=== PATIENT | female | born 1940 | race Caucasian/White ===

== ENCOUNTER → 2020-07-26 | Outpatient (CLI) | payer MEDICARE, BC ==
[~2020-07-26] MED LIST: AMLODIPINE BES2.5 MG PO; ASPIRIN81 M1 PO; ATENOLOL25 MG PO; CALCITONIN-SAL3.7 ML; FOLIC ACID; FOLIC ACID PO; GLUCOSAMINE PO; VESICARE5 MG PO; VIT D PO; VITAMIN D3 1,01 EACH PO; [UNRECOGNIZED DRUG - OTHER]
== END ==
LOC: MRI 14:06
PROVIDERS: ATTEND Internal Medicine
DX: R42 Dizziness and giddiness (principal); M21.372 Foot drop, left foot
CPT/HCPCS: 70551

== ENCOUNTER → 2020-09-02 | Outpatient (CLI) | payer MEDICARE, BC | LOC: MRI 10:16 | PROVIDERS: ATTEND Psychiatry & Neurology Neurology | DX: M54.16 Radiculopathy, lumbar region (principal) | CPT/HCPCS: 72148 ==

== ENCOUNTER → 2020-10-04 | Outpatient (CLI) | payer MEDICARE, BC ==
[~2020-10-04] MED LIST changes: +IOPAMIDOL 370 MG/ML 200 ML INFUS..BTL INJ ONE; +SODIUM CHLORIDE 0.9% 100 ML ONE; +SODIUM CHLORIDE 0.9% 500ML 500 ML ONE
[2020-10-04 14:15] LABS: CREATININE, SERUM 1.2 mg/dL (0.57-1.11)
== END ==
LOC: CT 13:27
PROVIDERS: ATTEND Internal Medicine
DX: R42 Dizziness and giddiness (principal); R55 Syncope and collapse
CPT/HCPCS: 36415; 70496; 70498; 82565; 84520; J7040; J7050; Q9967

== ENCOUNTER → 2021-11-07 | Outpatient (CLI) | payer MEDICARE ==
[~2021-11-07] MED LIST changes: -IOPAMIDOL 370 MG/ML 200 ML INFUS..BTL INJ ONE; -SODIUM CHLORIDE 0.9% 100 ML ONE; -SODIUM CHLORIDE 0.9% 500ML 500 ML ONE
== END ==
LOC: MRI 07:11
PROVIDERS: ATTEND Specialist
DX: R42 Dizziness and giddiness (principal); M21.372 Foot drop, left foot; R26.81 Unsteadiness on feet
CPT/HCPCS: 72040; 72070; 72100; 72141; 72146; 72148

== ENCOUNTER 2021-12-22 14:00 | Outpatient (RCR) | payer MEDICARE | END 2021-12-31 | LOC: PT 14:00 | PROVIDERS: ATTEND Specialist | DX: S32.591D Other specified fracture of right pubis, subsequent encounter for fracture with routine healing (principal) ==

== ENCOUNTER 2022-01-29 13:53 | Outpatient (RCR) | payer MEDICARE | END 2022-01-31 | LOC: PT 13:53 | PROVIDERS: ATTEND Specialist | DX: S32.591D Other specified fracture of right pubis, subsequent encounter for fracture with routine healing (principal) ==

== ENCOUNTER 2022-02-12 13:59 | Outpatient (RCR) | payer MEDICARE | END 2022-03-02 | LOC: PT 13:59 | PROVIDERS: ATTEND Specialist | DX: S32.591D Other specified fracture of right pubis, subsequent encounter for fracture with routine healing (principal) ==

== ENCOUNTER 2022-05-08 20:08 | Emergency (ER) | payer MEDICARE ==
[2022-05-08] MEDS ORDERED: LIDOCAINE HCL 1% LOCAL INJ 20 ML VIAL INJ ONE (20:45)
[2022-05-08] MEDS ORDERED: LIDOCAINE 1% 10 ML MULTIDOSE VIAL IJ ONE (21:08)
[2022-05-08 22:30] VITALS: BP 155/76
[2022-05-08] MEDS ORDERED: CEPHALEXIN500 MG PO (22:32)
== END 2022-05-08 22:30 | disposition home or self-care (01) ==
LOC: FSED 20:13
DX: S51.012A Laceration without foreign body of left elbow, initial encounter (principal); S51.811A Laceration without foreign body of right forearm, initial encounter; S60.212A Contusion of left wrist, initial encounter; I10 Essential (primary) hypertension; E78.5 Hyperlipidemia, unspecified; W18.39XA Other fall on same level, initial encounter; Z88.6 Allergy status to analgesic agent; Z88.0 Allergy status to penicillin; Z79.899 Other long term (current) drug therapy; Z87.891 Personal history of nicotine dependence
CPT/HCPCS: 99284

== ENCOUNTER → 2022-07-17 | Outpatient (CLI) | payer MEDICARE ==
[~2022-07-17] MED LIST changes: +CEPHALEXIN500 MG PO
== END ==
LOC: RAD 11:54
PROVIDERS: ATTEND Internal Medicine
DX: M25.561 Pain in right knee (principal)

== ENCOUNTER 2022-09-20 11:20 | Observation (INO) | payer MEDICARE ==
[~2022-09-20] VITALS: Ht 152.4 cm; Wt 57.6 kg
[2022-09-20 11:49] LABS: BASOPHILS % 0.5 % (0.0-1.0); EOSINOPHILS # (AUTO) 0.1 (0.0-0.4); EOSINOPHILS % 1.1 % (0.0-6.0); HEMATOCRIT 32.7 % (34.2-44.1); HEMOGLOBIN 9.8 g/dL (12.0-16.0); LYMPHOCYTES # (AUTO) 1.4 (1.0-3.2); LYMPHOCYTES % 15.3 % (18.0-39.1); MEAN CORPUSCULAR HEMOGLOBIN 20.2 pg (28-32); MEAN CORPUSCULAR VOLUME 67.4 fL (81-99); MONOCYTES # (AUTO) 0.5 (0.2-0.8); MONOCYTES % 5.7 % (4.4-11.3); NEUTROPHILS # (AUTO) 6.8 (2.1-6.9); NEUTROPHILS % 77.1 % (38.7-80.0); PLATELET COUNT 268 x10e3/uL (140-360); RED BLOOD COUNT 4.85 x10e6/uL (3.6-5.1); RED CELL DISTRIBUTION WIDTH 14.7 % (11.7-14.4)
[2022-09-20 12:01] LABS: INR 0.94; PARTIAL THROMBOPLASTIN TIME 29.2 seconds (23.8-35.5); PROTHROMBIN TIME 13.1 seconds (11.9-14.5)
[2022-09-20 12:09] LABS: ALANINE AMINOTRANSFERASE 7 IU/L (0-55); ALBUMIN 3.7 g/dL (3.5-5.0); ALBUMIN/GLOBULIN RATIO 1.2 (0.8-2.0); ALKALINE PHOSPHATASE 98 IU/L (40-150); ANION GAP 12.9 mmol/L (8-16); BLOOD UREA NITROGEN 18 mg/dL (7-26); BUN/CREATININE RATIO 21 (6-25); CARBON DIOXIDE 24 mmol/L (22-29); CHLORIDE 109 mmol/L (98-107); CREATINE KINASE 34 IU/L (29-168); CREATININE, SERUM 0.84 mg/dL (0.57-1.11); GLUCOSE 103 mg/dL (74-118); MAGNESIUM 1.9 MG/DL (1.3-2.1); POTASSIUM 3.9 mmol/L (3.5-5.1); SODIUM 142 mmol/L (136-145)
[2022-09-20] MEDS ORDERED: ASPIRIN 81 MG CHEW TAB PO STA (12:10)
[2022-09-20] MEDS ORDERED: ONDANSETRON HCL INJ 2MG/ML 2ML 2 MG/ML VIAL IV PRN (13:00)
[2022-09-20] MEDS ORDERED: NITROGLYCERIN 0.4 MG SUBL SL PRN (13:00)
[2022-09-20] MEDS: FAMOTIDINE 20 MG/2 ML VIAL IV SCH (13:07)
[2022-09-20 16:30] VITALS: BP 181/78
[2022-09-20 16:37] VITALS: BP 181/78
[2022-09-20] MEDS ORDERED: ALENDRONATE SOD70 MG (17:09)
[2022-09-20] MEDS ORDERED: ASPIRIN CHEW81 MG PO (17:09)
[2022-09-20] MEDS ORDERED: FOLIC ACID0.4 MG PO (17:09)
[2022-09-20] MEDS ORDERED: ZOLOFT50 MG PO (17:09)
[2022-09-20] MEDS ORDERED: ISORDIL40 MG PO (17:09)
[2022-09-20] MEDS ORDERED: PROTONIX20 MG PO (17:09)
[2022-09-20 19:31] LABS: CREATINE KINASE 135 IU/L (29-168)
[2022-09-20 20:00] VITALS: BP 171/61
[2022-09-20] MEDS ORDERED: ISOSORBIDE DINITRATE 20 MG TAB PO SCH (20:00)
[2022-09-20] MEDS ORDERED: ALENDRONATE SODIUM 70 MG TAB PO SCH (20:15)
[2022-09-20 20:20] VITALS: BP 171/61
[2022-09-20] MEDS: SERTRALINE HCL 50 MG TAB PO SCH (21:07)
[2022-09-20] MEDS: ISOSORBIDE DINITRATE 20 MG TAB PO SCH (21:07)
[2022-09-21] VITALS (7 sets, daily range): BP systolic 104–133; BP diastolic 40–58
[2022-09-21] MEDS: FAMOTIDINE 20 MG/2 ML VIAL IV SCH ×2 (00:27→14:57)
[2022-09-21 05:32] LABS: BASOPHILS % 0.4 % (0.0-1.0); EOSINOPHILS # (AUTO) 0.1 (0.0-0.4); EOSINOPHILS % 1.3 % (0.0-6.0); HEMATOCRIT 29.6 % (34.2-44.1); HEMOGLOBIN 8.8 g/dL (12.0-16.0); LYMPHOCYTES # (AUTO) 1.7 (1.0-3.2); LYMPHOCYTES % 22.4 % (18.0-39.1); MEAN CORPUSCULAR HEMOGLOBIN 20.3 pg (28-32); MEAN CORPUSCULAR HGB CONC 29.7 g/dL (31-35); MEAN CORPUSCULAR VOLUME 68.4 fL (81-99); MONOCYTES # (AUTO) 0.6 (0.2-0.8); MONOCYTES % 7.1 % (4.4-11.3); NEUTROPHILS # (AUTO) 5.3 (2.1-6.9); NEUTROPHILS % 68.3 % (38.7-80.0); PLATELET COUNT 237 x10e3/uL (140-360); RED BLOOD COUNT 4.33 x10e6/uL (3.6-5.1); RED CELL DISTRIBUTION WIDTH 14.9 % (11.7-14.4)
[2022-09-21 06:00] LABS: ALBUMIN 3.4 g/dL (3.5-5.0); ALBUMIN/GLOBULIN RATIO 1.2 (0.8-2.0); CALCIUM 8.9 mg/dL (8.4-10.2); CREATININE, SERUM 0.91 mg/dL (0.57-1.11)
[2022-09-21 06:23] LABS: CREATINE KINASE 44 IU/L (29-168)
[2022-09-21] MEDS ORDERED: SERTRALINE HCL 50 MG TAB PO SCH (09:00)
[2022-09-21] MEDS ORDERED: ASPIRIN 81 MG CHEW TAB PO SCH (09:00)
[2022-09-21 09:42] LABS: THYROID STIMULATING HORMONE 1.469 uIU/mL (0.350-4.940)
[2022-09-21] MEDS: ACETAMINOPHEN 325 MG TAB PO PRN ×2 (09:51→14:58)
[2022-09-21] MEDS: PANTOPRAZOLE SOD 40 MG TABEC PO SCH (09:51)
[2022-09-21] MEDS: FOLIC ACID 1 MG TAB PO SCH (09:51)
[2022-09-21] MEDS: ASPIRIN 81 MG ENTERIC COATED PO SCH (09:51)
[2022-09-21] MEDS: ISOSORBIDE DINITRATE 20 MG TAB PO SCH ×3 (09:52→20:43)
[2022-09-21] MEDS ORDERED: IOPAMIDOL 370 MG/ML 100 ML INFUS..BTL INJ ONE (10:49)
[2022-09-21 12:13] LABS: CREATINE KINASE 55 IU/L (29-168)
[2022-09-21] MEDS: SERTRALINE HCL 50 MG TAB PO SCH (20:42)
[2022-09-22] MEDS: FAMOTIDINE 20 MG/2 ML VIAL IV SCH ×2 (01:00→13:00)
[2022-09-22 01:23] VITALS: BP 110/48
[2022-09-22 04:00] VITALS: BP 127/99
[2022-09-22] MEDS: ISOSORBIDE DINITRATE 20 MG TAB PO SCH ×2 (07:30→08:53)
[2022-09-22 07:53] VITALS: BP 127/62
[2022-09-22] MEDS: ASPIRIN 81 MG ENTERIC COATED PO SCH (08:52)
[2022-09-22] MEDS: FOLIC ACID 1 MG TAB PO SCH (08:52)
[2022-09-22] MEDS: PANTOPRAZOLE SOD 40 MG TABEC PO SCH (08:52)
[2022-09-22] MEDS: ACETAMINOPHEN 325 MG TAB PO PRN (08:54)
[2022-09-22 08:59] VITALS: BP 127/62
[2022-09-22 12:01] VITALS: BP 101/47
[2022-09-22] MEDS ORDERED: MIDODRINE HCL2.5 MG PO (13:01)
[2022-09-22] MEDS ORDERED: CELEBREX100 MG PO (13:02)
[2022-09-22] MEDS ORDERED: MECLIZINE HCL12.5 MG PO (13:03)
[2022-09-22] MEDS ORDERED: TYLENOL#3 PO (13:04)
== END 2022-09-22 14:20 | disposition home or self-care (01) ==
LOC: ER 11:32 → ERHOLD 12:54 → MED/SURG 16:15
PROVIDERS: ADMIT Internal Medicine; ATTEND Internal Medicine
DX: R07.89 Other chest pain (principal); D64.9 Anemia, unspecified; R10.2 Pelvic and perineal pain; Z20.822 Contact with and (suspected) exposure to COVID-19; J43.9 Emphysema, unspecified; N26.1 Atrophy of kidney (terminal); Z86.16 Personal history of COVID-19
CPT/HCPCS: 36415 ×2; 71045; 71260; 74177; 80053 ×2; 80061; 82550 ×2; 82553 ×2; 82607; 82746; 83540; 83735; 83880; 84443; 84466; 84484 ×2; 85025 ×2; 85610; 85730; 93005; 93306; 99284; G0378 ×3; Q9967; S0164 ×2; U0002

== ENCOUNTER 2023-07-26 22:30 | Observation (INO) | payer MEDICARE ==
[~2023-07-26] VITALS: Ht 152.4 cm; Wt 56.7 kg
[~2023-07-26 22:30] MED LIST changes: +ALENDRONATE SOD70 MG; +ASPIRIN CHEW81 MG PO; +CELEBREX100 MG PO; +FOLIC ACID0.4 MG PO; +ISORDIL40 MG PO; +MECLIZINE HCL12.5 MG PO; +MIDODRINE HCL2.5 MG PO; +PROTONIX20 MG PO; +TYLENOL#3 PO; +ZOLOFT50 MG PO
[2023-07-26] MEDS: SODIUM CHLORIDE 0.9% 1000ML 1,000 ML IV STA (23:50)
[2023-07-26 23:57] LABS: BASOPHILS % 0.1 % (0.0-1.0); EOSINOPHILS % 0.1 % (0.0-6.0); HEMATOCRIT 29.5 % (34.2-44.1); HEMOGLOBIN 9.2 g/dL (12.0-16.0); LYMPHOCYTES # (AUTO) 1.2 (1.0-3.2); LYMPHOCYTES % 16.3 % (18.0-39.1); MEAN CORPUSCULAR HEMOGLOBIN 20.9 pg (28-32); MEAN CORPUSCULAR HGB CONC 31.2 g/dL (31-35); MONOCYTES # (AUTO) 0.4 (0.2-0.8); MONOCYTES % 5.2 % (4.4-11.3); NEUTROPHILS # (AUTO) 5.9 (2.1-6.9); NEUTROPHILS % 77.8 % (38.7-80.0); PLATELET COUNT 204 x10e3/uL (140-360); RED CELL DISTRIBUTION WIDTH 15.1 % (11.7-14.4); WHITE BLOOD COUNT 7.62 x10e3/uL (4.8-10.8)
[2023-07-27] VITALS (10 sets, daily range): BP systolic 120–143; BP diastolic 45–50; PULSE 68–85; RESP 16–22; TEMP 97.8–98.4; O2SAT 92–98
[2023-07-27 00:21] LABS: ALBUMIN 3.7 g/dL (3.5-5.0); ALBUMIN/GLOBULIN RATIO 1.3 (0.8-2.0); ANION GAP 15.6 mmol/L (8-16); BILIRUBIN,TOTAL 1.5 mg/dL (0.2-1.2); CALCIUM 8.8 mg/dL (8.4-10.2); CREATININE, SERUM 0.9 mg/dL (0.57-1.11); POTASSIUM 3.6 mmol/L (3.5-5.1); TOTAL PROTEIN 6.6 g/dL (6.5-8.1)
[2023-07-27 00:25] LABS: INFLUENZAE A&B ANTIGEN (RAPID) NEGATIVE (NEGATIVE); RESPIRATORY SYNC. VIRUS NEGATIVE (NEGATIVE); STREPTOCOCCUS GRP A ANTIGEN NEGATIVE (NEGATIVE)
[2023-07-27 00:31] LABS: TROPONIN I 0.021 ng/mL (0-0.300)
[2023-07-27] MEDS ORDERED: SODIUM CHLORIDE 0.9% 1000ML 1,000 ML IV SCH (01:45)
[2023-07-27 02:33] LABS: BILIRUBIN,URINE NEGATIVE (NEGATIVE); CLARITY,URINE CLEAR (CLEAR); COLOR,URINE YELLOW (YELLOW); GLUCOSE, URINE NEGATIVE (NEGATIVE); KETONES,URINE NEGATIVE (NEGATIVE); LEUKOCYTE ESTERASE ,URINE NEGATIVE (NEGATIVE); NITRITE,URINE NEGATIVE (NEGATIVE); PH,URINE 7 (5 - 7); PROTEIN,URINE DIPSTICK NEGATIVE (NEGATIVE); URINE UROBILINOGEN 0.2 mg/dL (0.2 - 1)
[2023-07-27 02:34] LABS: BACTERIA,URINE FEW /HPF; EPITHELIAL CELLS,URINE FEW /LPF; RBC,URINE 0-5 /HPF (0-5); WBC,URINE (MAN) 0-5 /HPF (0-5)
[2023-07-27] MEDS ORDERED: ALBUTEROL SULF 0.083% NEB SOLN 3 ML NEB NEB PRN (03:00)
[2023-07-27] MEDS ORDERED: LOSARTAN POTAS100 MG PO (04:03)
[2023-07-27] MEDS ORDERED: D3-5000125 MCG (04:03)
[2023-07-27] MEDS ORDERED: GEMTESA75 MG (04:03)
[2023-07-27] MEDS ORDERED: AMLODIPINE BESY10 MG PO (04:03)
[2023-07-27] MEDS ORDERED: CALCIUM600 MG (04:03)
[2023-07-27] MEDS ORDERED: ALLEGRA ALLERGY60 MG PO (04:03)
[2023-07-27] MEDS ORDERED: DOCUSATE SODIU100 MG PO (04:03)
[2023-07-27] MEDS ORDERED: SERTRALINE HCL50 MG PO (04:03)
[2023-07-27 06:18] LABS: TROPONIN I 0.017 ng/mL (0-0.300)
[2023-07-27] MEDS: METHYLPREDNISOLONE SOD SUCC 40 MG/ML VIAL 1ML IV SCH (06:55)
[2023-07-27] MEDS ORDERED: ALBUTEROL/IPRATROPIUM 3 ML NEB NEB PRN (09:45)
[2023-07-27] MEDS ORDERED: HYDRALAZINE HCL 25 MG TAB PO PRN (09:45)
[2023-07-27] MEDS: LOSARTAN POTASSIUM 100 MG TAB PO SCH ×2 (10:30→20:01)
[2023-07-27] MEDS: EPOETIN ALFA-EPBX 10,000 UNIT/ML VIAL SC ONE (11:59)
[2023-07-27] MEDS: AMLODIPINE BESYLATE 10 MG TAB PO SCH (11:59)
[2023-07-27] MEDS: SODIUM CHLORIDE 0.9% 250ML 250 ML ONE (12:00)
[2023-07-27] MEDS: IRON SUCROSE 100 MG in SODIUM CHLORIDE 0.9% 100 ML IV SCH (14:04)
[2023-07-27] MEDS: PREDNISONE 10 MG TAB PO SCH (16:31)
[2023-07-27 18:49] LABS: TROPONIN I 0.012 ng/mL (0-0.300)
[2023-07-28 05:26] LABS: BASOPHILS % 0.2 % (0.0-1.0); HEMATOCRIT 29.2 % (34.2-44.1); HEMOGLOBIN 8.7 g/dL (12.0-16.0); LYMPHOCYTES # (AUTO) 1.9 (1.0-3.2); LYMPHOCYTES % 29.4 % (18.0-39.1); MEAN CORPUSCULAR HEMOGLOBIN 20.8 pg (28-32); MEAN CORPUSCULAR HGB CONC 29.8 g/dL (31-35); MEAN CORPUSCULAR VOLUME 69.7 fL (81-99); MONOCYTES # (AUTO) 0.4 (0.2-0.8); MONOCYTES % 6.3 % (4.4-11.3); NEUTROPHILS # (AUTO) 4.1 (2.1-6.9); NEUTROPHILS % 63.3 % (38.7-80.0); PLATELET COUNT 190 x10e3/uL (140-360); RED BLOOD COUNT 4.19 x10e6/uL (3.6-5.1); RED CELL DISTRIBUTION WIDTH 15.1 % (11.7-14.4); WHITE BLOOD COUNT 6.47 x10e3/uL (4.8-10.8)
[2023-07-28] MEDS: BENZONATATE 100 MG CAP PO PRN (05:36)
[2023-07-28 05:49] LABS: ALBUMIN 3.3 g/dL (3.5-5.0); ALBUMIN/GLOBULIN RATIO 1.1 (0.8-2.0); ANION GAP 15.5 mmol/L (8-16); BILIRUBIN,TOTAL 0.6 mg/dL (0.2-1.2); CALCIUM 8.4 mg/dL (8.4-10.2); CREATININE, SERUM 0.85 mg/dL (0.57-1.11); POTASSIUM 3.5 mmol/L (3.5-5.1); TOTAL PROTEIN 6.2 g/dL (6.5-8.1)
[2023-07-28 06:14] LABS: TROPONIN I 0.013 ng/mL (0-0.300)
[2023-07-28] MEDS: PANTOPRAZOLE SOD 40 MG TABEC PO SCH (08:24)
[2023-07-28] MEDS: SERTRALINE HCL 50 MG TAB PO SCH (08:24)
[2023-07-28 08:26] VITALS: BP 120/44; PULSE 66; RESP 20; TEMP 97.8; O2SAT 97
[2023-07-28 08:34] VITALS: BP 120/44; PULSE 66; RESP 20; TEMP 97.8; O2SAT 97
[2023-07-28 09:58] VITALS: PULSE 68; RESP 18; O2SAT 95
[2023-07-28 10:42] LABS: ANISOCYTOSIS SLIGHT; HYPOCHROMASIA SLIGHT; MICROCYTOSIS SLIGHT; PLATELET ESTIMATE ADEQUATE; PLATELET MORPHOLOGY COMMENT NORMAL
== END 2023-07-28 10:51 | disposition home or self-care (01) ==
LOC: ER 22:38 → ERHOLD 07-27 01:32 → MED/SURG 07-27 02:42
PROVIDERS: ADMIT Family Medicine Adult Medicine; ATTEND Family Medicine Adult Medicine
DX: D50.9 Iron deficiency anemia, unspecified (principal); D56.9 Thalassemia, unspecified; J10.1 Influenza due to other identified influenza virus with other respiratory manifestations; E86.0 Dehydration; R63.0 Anorexia; Z68.24 Body mass index [BMI] 24.0-24.9, adult; R53.81 Other malaise; K21.9 Gastro-esophageal reflux disease without esophagitis; E78.5 Hyperlipidemia, unspecified; M19.91 Primary osteoarthritis, unspecified site; F32.9 Major depressive disorder, single episode, unspecified; Z11.52 Encounter for screening for COVID-19; Z79.899 Other long term (current) drug therapy; Z88.0 Allergy status to penicillin; Z88.8 Allergy status to other drugs, medicaments and biological substances
CPT/HCPCS: 36415 ×3; 71045; 80053 ×2; 81001; 82550 ×3; 83518; 83690; 83880; 84484 ×3; 85025 ×2; 87070; 87400; 87420; 93005; 94799 ×2; 99284; G0378 ×2; J1756 ×2; J2543; J2920; J7030 ×2; J7050 ×3; J7512 ×2; S0164; U0002

== ENCOUNTER → 2024-08-11 | Outpatient (REF) | payer MEDICARE ==
[~2024-08-11] MED LIST changes: +ALLEGRA ALLERGY60 MG PO; +AMLODIPINE BESY10 MG PO; +CALCIUM600 MG; +D3-5000125 MCG; +DOCUSATE SODIU100 MG PO; +GEMTESA75 MG; +LOSARTAN POTAS100 MG PO; +SERTRALINE HCL50 MG PO
== END ==
LOC: DX 10:32
PROVIDERS: ATTEND Internal Medicine
DX: R13.10 Dysphagia, unspecified (principal); D56.1 Beta thalassemia; N18.31 Chronic kidney disease, stage 3a; G81.92 Hemiplegia, unspecified affecting left dominant side
CPT/HCPCS: 74230

== ENCOUNTER → 2024-11-18 | Outpatient (REF) | payer MEDICARE | LOC: US 14:20 | PROVIDERS: ATTEND Internal Medicine | DX: R22.1 Localized swelling, mass and lump, neck (principal) | CPT/HCPCS: 76536 ==